=== PATIENT | male | born 1945 | race Caucasian/White ===

== ENCOUNTER 2017-04-08 09:30 | Observation (INO) | payer MEDICARE ==
[~2017-04-08] VITALS: Ht 180.3 cm; Wt 159.7 kg
[~2017-04-08 09:30] MED LIST: ASPI325T8 PO; CINN500C2 PO; CRESTOR40 MG PO; DOXA4TAB3 PO; FISH1CAP PO; GLIM2TAB2 PO; INSU100C4 SQ; LEVO200T5 PO; LISI1TAB7 PO; METF500T9 PO; METO-269 PO; MULT-404 PO; PANT40TA5 PO
[2017-04-08] MEDS: IV RINGERS,LACTATED 1000ML 1,000 ML IV SCH ×2 (10:11→18:10)
[2017-04-08] MEDS ORDERED: LIDOCAINE 1% PF 2 ML VIAL. ID PRN (10:15)
[2017-04-08] MEDS ORDERED: MIDAZOLAM HCL/PF 2 MG/2 ML VIAL. IV PRN (10:15)
[2017-04-08] MEDS ORDERED: fentaNYL PF VIAL 100 MCG/2 ML VIAL IV PRN ×2 (10:15)
[2017-04-08] MEDS ORDERED: PROPOFOL 20 ML IV ONE (10:38)
[2017-04-08] MEDS ORDERED: DEXAMETHASONE SOD PHOS 20 MG/5 ML VIAL. ONE (10:38)
[2017-04-08] MEDS ORDERED: LIDOCAINE 2% PF Vial for OR 5 ML VIAL. ONE (10:38)
[2017-04-08] MEDS ORDERED: ROCURONIUM 50 MG/5 ML VIAL. ONE (10:39)
[2017-04-08] MEDS ORDERED: SUCCINYLCHOLINE 200 MG/10 ML VIAL. ONE (10:39)
[2017-04-08] MEDS ORDERED: fentaNYL PF VIAL 250 MCG/5 ML VIAL ONE (10:39)
[2017-04-08] MEDS ORDERED: fentaNYL PF VIAL 100 MCG/2 ML VIAL ONE ×3 (10:39→17:07)
[2017-04-08] MEDS ORDERED: ceFAZolin SODIUM 3 GM in IV DEXTROSE 5% 100 ML IV ONE (12:30)
[2017-04-08] MEDS ORDERED: EPINEPHrine VIAL 30 MG/30 ML VIAL ONE (12:46)
[2017-04-08] MEDS ORDERED: BACITRACIN TOPICAL OINT 14GM TUBE. TP ONE (12:46)
[2017-04-08] MEDS ORDERED: LIDOCAINE 1%/EPI 1:100,000 20 ML VIAL. ONE (12:46)
[2017-04-08] MEDS ORDERED: SEVOFLURANE > 120 MINUTES. IH ONE (15:06)
[2017-04-08] MEDS ORDERED: NALOXONE 0.4 MG/ML VIAL. IV PRN (16:00)
[2017-04-08] MEDS ORDERED: PROCHLORPERAZINE 10 MG/2 ML VIAL. IV PRN (16:00)
[2017-04-08] MEDS ORDERED: MAGNESIUM HYDROXIDE 2,400 MG/30 ML ORAL.SUSP. PO PRN (16:00)
[2017-04-08] MEDS ORDERED: METOCLOPRAMIDE HCL 10 MG/2 ML VIAL. IV PRN (16:00)
[2017-04-08] MEDS ORDERED: 0.9 % SODIUM CHLORIDE 10 ML DISP.SYRIN. IV PRN (16:00)
[2017-04-08] MEDS ORDERED: MORPHINE SULFATE 4 MG/ML DISP.SYRIN. IV PRN ×3 (16:00→20:05)
[2017-04-08] MEDS ORDERED: ONDANSETRON PF 4 MG/2 ML VIAL. IV PRN (16:00)
[2017-04-08] MEDS ORDERED: oxyCODONE/APAP 5/325 1 TAB TABLET PO PRN ×2 (16:00)
[2017-04-08] MEDS ORDERED: PROCHLORPERAZINE 10 MG/2 ML VIAL. ONE (16:31)
--- NOTE | 2017-04-08 16:40 | OP ---
DATE OF SURGERY: 04/08/2017 PREOPERATIVE DIAGNOSIS: Left thyroid nodule. POSTOPERATIVE DIAGNOSIS: Left thyroid nodule. PROCEDURE PERFORMED: Left thyroid lobectomy. ANESTHESIA: General endotracheal anesthesia. SURGEON: Dr. Rachelle Benavides. BLEACH PACKER: Dr. Lois Marley. INDICATIONS: The patient is a 71-year-old male with a gradually enlarging left thyroid nodule that has become greater than 4 cm in size. 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 However, due to the continuing large size, the decision was made for the patient to undergo the above procedure. The risks, benefits and alternatives to surgery were thoroughly discussed with the patient and informed consent was obtained. INTRAOPERATIVE FINDINGS: 1. A 4 cm left thyroid nodule encompassing the entire inferior lobe of the thyroid gland. 2. The recurrent laryngeal nerve was intact and stimulated at the end of the case at 0.5 milliamps. 3. The patient was a difficult intubation with only a grade 3-view of the larynx even with the GlideScope. DESCRIPTION OF PROCEDURE: The patient was brought back to the operating room per anesthesia. He was found to be a difficult intubation and required a GlideScope to obtain a grade 3-view for intubation with a nerve integrity monitor endotracheal tube; however, after intubation, the cuff was found to be damaged and required a replacement tube over a bougie done to the joint two separate times due to the cuff continuously being damaged. The patient was therefore given Decadron to help prevent intralaryngeal edema. After this was completed, the patient was turned 180 degrees in the room. A shoulder roll was placed under his shoulders and his neck was positioned so we can get adequate exposure of the anterior neck. A 5 cm incision was planned in the subcutaneous crease over 2 fingerbreadths from the sternal notch. This was injected in subcutaneous fashion with 1% lidocaine with 1:100,000 epinephrine. A #15 blade was then used to cut through the skin and subcutaneous tissue. Bovie electrocautery was used to cut through the subcutaneous tissue and platysma. We then elevated subplatysmal flaps inferiorly to the sternal notch and superiorly to the thyroid notch and laterally to the sternocleidomastoid muscles bilaterally. The strap musculature was then identified at the midline and at the midline using Bovie electrocautery as well as a LigaSure cautery. The strap musculature was dissected away from the anterior surface of the thyroid gland using Bovie electrocautery and LigaSure. I then used the LigaSure to dissect the superior pole away from the superior vascular supply. I also did this on the lateral aspect and the inferior aspect. The gland was then retracted medially. There was noted Zuckerkandl excellent tubercle and we carefully dissected underneath this. There was significant scar tissue on the undersurface of the thyroid gland. This was carefully dissected. This scar tissue was carefully dissected away using bipolar electrocautery. The recurrent laryngeal nerve was significantly lateral to the thyroid gland, which was not near this and was not near the thyroid gland and therefore did not need to be dissected away from the thyroid gland. The scar tissue. I continued to dissect the scar tissue away from the undersurface of the thyroid gland using bipolar cautery. Once I was safely on to the paratracheal tissue, I used LigaSure cautery as well as the Bovie to continue dissect the tissue away from the paratracheal tissue. Once we identified the thyroid isthmus, I clamped the thyroid isthmus at the midline. I then used a LigaSure to dissect away the left thyroid gland from the thyroid isthmus. This was sent for intraoperative touch prep sectioning by pathology, which was consistent with a follicular neoplasm, no karen malignancy was identified. A 2-0 silk tie was used to bryan and tie off the right thyroid isthmus. I then inspected and irrigated the surgical bed. Adequate hemostasis was confirmed using bipolar electrocautery. The recurrent laryngeal nerve was again identified and stimulated at 0.5 milliamps at the end of the case. Mely powder was placed within the surgical wound. A 10-Tamazight flat fully fluted drain was placed within the surgical bed. The strap musculature was closed around the drain using 3-0 Vicryl suture and then this drain was brought out through a stab incision at the left lateral aspect of her incision and sutured to the skin using 3-0 nylon suture. I ensured adequate hemostasis in the subplatysmal layer. The deep dermal and platysmal layers were closed with buried interrupted sutures of 3-0 Vicryl. The skin layer was closed with a horizontal running mattress suture of 5-0 Prolene. The patient was turned back over to anesthesia and extubated without complication. Sponge and instrument counts corrected in the case. COMPLICATIONS: None. DISPOSITION: Stable and transferred to the recovery room. RACHELLE BENAVIDES MD DR: JOHN/celestine JOB#: [id number] / [id number]
[2017-04-08] MEDS ORDERED: hydrALAZINE 20 MG/ML VIAL. ONE (16:52)
[2017-04-08] MEDS ORDERED: hydrALAZINE 20 MG/ML VIAL. IVP PRN (17:00)
[2017-04-08] MEDS ORDERED: INSULIN ASPART 300 UNITS/3 ML INSULN.PEN SQ SCH (18:00)
[2017-04-08 19:35] VITALS: BP 166/74
[2017-04-08] MEDS ORDERED: MORPHINE SULFATE 2 MG/ML DISP.SYRIN. IV PRN ×2 (19:45→20:00)
[2017-04-08] MEDS: IV NORMAL SALINE 1000ML BAG 1,000 ML IV SCH (20:18)
[2017-04-08] MEDS: DOCUSATE SODIUM 100 MG CAPSULE. PO SCH (20:54)
[2017-04-08] MEDS ORDERED: DOXAZOSIN MESYLATE 4 MG TABLET. PO SCH (21:00)
[2017-04-08] MEDS ORDERED: ATORVASTATIN CALCIUM 40 MG TABLET. PO SCH (21:00)
[2017-04-08 23:20] VITALS: BP 156/70
[2017-04-08] MEDS ORDERED: HUM100VI5 SQ (23:24)
[2017-04-09] MEDS: IV NORMAL SALINE 1000ML BAG 1,000 ML IV SCH ×2 (01:54→06:04)
[2017-04-09 03:40] VITALS: BP 138/51
[2017-04-09 05:54] LABS: BASO % 0 % (0-3); EOS % 0 % (0-3); HEMATOCRIT 40.4 % (39.0-53.0); HEMOGLOBIN 13.5 g/dL (13.0-17.5); LYMPH # 0.9 x10^3/uL (1.0-4.8); LYMPH % 7 % (24-48); MEAN CORPUSCULAR HEMOGLOBIN 30 pg (25-35); MEAN CORPUSCULAR HGB CONC 33 g/dL (31-37); MEAN CORPUSCULAR VOLUME 90 fL (79-100); MONO % 5 % (0-9); NEUT % 89 % (31-73); PLATELET COUNT 193 x10^3/uL (140-400); RED BLOOD COUNT 4.48 x10^6/uL (4.30-5.70); WHITE BLOOD COUNT 13.4 x10^3/uL (4.0-11.0)
[2017-04-09 06:28] LABS: CALCIUM 9.1 mg/dL (8.5-10.1); GFR 73.9; POTASSIUM 4.2 mmol/L (3.5-5.1)
[2017-04-09] MEDS ORDERED: DEXTROSE 50% 25 GM / 50ML DISP.SYRIN. IV PRN (06:30)
[2017-04-09 07:00] VITALS: BP 156/61
[2017-04-09] MEDS ORDERED: LEVOTHYROXINE 100 MCG TABLET PO SCH (07:00)
[2017-04-09] MEDS ORDERED: GLIMEPIRIDE 2 MG TABLET. PO SCH (07:30)
[2017-04-09] MEDS ORDERED: PANTOPRAZOLE 40 MG TABLET.DR. PO SCH (07:30)
[2017-04-09 07:56] LABS: PLT ESTIMATE ADEQUATE (ADEQUATE)
[2017-04-09] MEDS ORDERED: metFORMIN XR 500 MG TAB.ER.24H PO SCH (08:00)
[2017-04-09] MEDS ORDERED: INSULN ASP PRT/INSULIN ASPART 300 UNITS/3 ML INSULN.PEN. SQ SCH (08:00)
[2017-04-09 08:57] VITALS: BP 138/51
[2017-04-09] MEDS ORDERED: METOPROLOL SUCC 24HR ER 50 MG TAB.ER.24H. PO SCH (09:00)
[2017-04-09] MEDS ORDERED: LISINOPRIL 20 MG TABLET PO SCH (09:00)
[2017-04-09] MEDS ORDERED: NON FORMULARY ITEM (Lisinopril/Hydrochlorothiazide (Lisinopril-Hctz 20-25 Mg Tab) 1 TAB) PO SCH (09:00)
[2017-04-09] MEDS ORDERED: hydroCHLOROthiazide 25 MG TABLET PO SCH (09:00)
--- NOTE | 2017-04-09 09:03 | DISCH ---
DISCHARGE INSTRUCTIONS Condition on Discharge Condition on Discharge: Stable Activity After Discharge Activity Instructions for Disc: Activity as tolerated Bathing Instructions: Shower-keep dressing dry Lifting Instructions after Dis: Do not lift >10 pounds Exercise Instruction after Dis: Progress as tolerated Driving Instructions after Dis: Do not drive Weight Bearing Status after Di: No restrictions Diet after Discharge Diet after Discharge: Regular Wound Incision Care Wound/Incision Care: Ice to area for comfort Wound Care Equipment: Sutures/mirza Contacting the [facility] after DC Call your doctor for: If your condition worsens Follow-Up Follow up with: Tuesday at [address] Benavides Treatment/Equipment after DC Adaptive Equipment Issued: None SARAH BETH BENAVIDES MD Apr 09, 2017 09:03
[2017-04-09] MEDS: INSULIN ASPART 300 UNITS/3 ML INSULN.PEN SQ SCH ×2 (09:05→12:00)
[2017-04-09] MEDS: DOCUSATE SODIUM 100 MG CAPSULE. PO SCH (09:05)
[2017-04-09] MEDS ORDERED: DOCU-109 PO (09:07)
[2017-04-09] MEDS ORDERED: OXYC1TAB7 PO (09:07)
--- NOTE | 2017-04-13 15:45 | PATHOLOGY ---
PATHOLOGY REPORT * * * * * * * * FINAL DIAGNOSIS: Thyroid lobe, left thyroid lobectomy: - Adenomatous nodule of lower and mid thyroid lobe, measuring 3.0 cm in greatest dimension, showing focal cystic degeneration, sclerosis, and focal calcification. - Franck's thyroiditis. - No parathyroid glands identified. COMMENT: There is no evidence of malignancy. The case is also examined by Dr. Prado, who concurs with the diagnosis. (JPM:mgr; 04/12/2017) REPORT ELECTRONICALLY SIGNED BY: Patrick José M.D. DATE/TIME: 04/13/2017 15:43 * * * * * * * * GROSS PATHOLOGY: Received fresh for intraoperative frozen section consultation designated, "Matto - Left thyroid", is a lobe of reddish-brown thyroid tissue which weighs 9.5 grams and measures 4.2 x 2.6 x 1.6 cm in greatest dimension. There appears to be a small nub of reddish-brown thyroid isthmic tissue measuring up to 0.7 x 1.1 cm. The capsular surface posteriorly shows focal brown black roughening. There is an apparent nodule involving the lower pole and middle lobe, which measures up to approximately 3.0 cm in greatest dimension. The capsular surface is inked. The lobe is sectioned. The nodule appears to have a thin focally calcified capsule and is partially cystic. The solid portion of the nodule is pink-lopez and soft. A loan representative portion of the nodule is submitted for frozen section as FSA1. The tissue remaining from frozen section is submitted for permanent sections as A1. (JPM:mml; 04/08/2017) FROZEN SECTION DIAGNOSIS: (Patrick José MD) FSA1. Left thyroid lobe, excision: - Partially cystic thin encapsulated thyroid nodule - definitive diagnosis pending examination of entire lesion. The results are reported to Dr. Benavides in the operating room. The remainder of the thyroid is submitted for microscopy as A2-A8 from superior to inferior. (JPM:mml; 04/08/2017) Testing performed by [facility] at [address] [address] INITIAL CPT CODE(S): A; 92701, 62048 Professional services performed by [facility] at [address] [address] Technical services performed by [facility] at [address] [place] [address], [facility] [address] [address]. SPECIMEN(S) RECEIVED: A.Left thyroid CLINICAL HISTORY: Left thyroid nodule PATIENT: KUSH TINEO /AGE: 711/23/1945 (Age: 71) PATIENT #: [id number] ALT CASE #: SPECIMEN COLLECTION DATE: 04/08/2017 SPECIMEN RECEIVED DATE: 04/08/2017 [facility] - [id number] [place] [address] - PHONE: [phone] * * * END OF REPORT * * *
== END 2017-04-09 12:25 | disposition home or self-care (01) ==
LOC: SURG 09:30 → 4 NORTH 16:49
PROVIDERS: ADMIT Otolaryngology; ATTEND Otolaryngology
DX: E04.1 Nontoxic single thyroid nodule (principal)
CPT/HCPCS: 36415; 60210; 80048; 82962; 85007; 85025; 96372; 96374; C1769; G0378; G0379; J0171; J0330; J0360; J0690; J0780; J1100; J1815; J2270; J2704; J3010; J3490; J7030; J7120; J2001